=== PATIENT | female | born 1950 | race Hispanic/Latino ===

== ENCOUNTER → 2018-10-24 | Outpatient (CLI) | payer OTHER | END | disposition home or self-care (01) | LOC: SHCH 15:40 | PROVIDERS: ATTEND Internal Medicine Cardiovascular Disease | DX: I51.7 Cardiomegaly (principal) | CPT/HCPCS: 93306 ==

== ENCOUNTER → 2018-11-05 | Outpatient (CLI) | payer OTHER ==
[~2018-11-05] VITALS: Ht 152.4 cm; Wt 93.4 kg
[~2018-11-05] MED LIST: REGADENOSON 0.4 MG/5 ML PF SYG IVP SCH
== END | disposition home or self-care (01) ==
LOC: SHCH 07:32
PROVIDERS: ATTEND Internal Medicine Cardiovascular Disease
DX: R07.9 Chest pain, unspecified (principal)
CPT/HCPCS: 78452; 93017; 96374; A9500 ×2; J2785

== ENCOUNTER → 2024-05-02 | Outpatient (CLI) | payer OTHER ==
--- NOTE | 2024-05-02 16:20 | HMCIMG ---
CT HEART SAVER PROMOTIONAL HISTORY: Calcium scoring COMPARISON: None TECHNIQUE: Computed tomography of the heart was performed with ECG gating and suspended respiration. Postprocessing was performed on a computer workstation to obtain diastolic phase images, determine calcium score and provide a quantitative assessment of extent of disease. This CT included only the heart. HeartSaver score is 606.70. Please see cardiac calcium score report. The available CT chest images show no acute finding. CT was performed with one or more following dose reduction techniques: automated exposure control, adjustment of the mA and kv according to patient's size, or use of a iterative reconstruction technique.
== END | disposition home or self-care (01) ==
LOC: RAH 15:42
PROVIDERS: ATTEND Internal Medicine Cardiovascular Disease
DX: Z13.6 Encounter for screening for cardiovascular disorders (principal)
CPT/HCPCS: 75571

== ENCOUNTER 2025-02-09 06:34 | Day surgery (SDC) | payer OTHER ==
[2025-02-05 12:22] LABS: IMMATURE GRANULOCYTE ABSOLUTE 0.01 K/uL (0-1); NUCLEATED RED BLOOD CELLS 0.0 % (0.0-0.19); PLATELET COUNT (AUTO) 145 K/uL (130-400); RED BLOOD CELL COUNT(AUTO) 4.14 MIL/uL (4.00-5.50); RED CELL DISTRIBUTION WIDTH 14.1 % (11.0-15.5); WHITE BLOOD COUNT (AUTO) 6.2 K/uL (4.8-10.8)
[2025-02-05 12:34] LABS: INR 0.97 (0.85-1.15)
[2025-02-05 12:38] LABS: ASPARTATE AMINOTRANSFERASE 15.0 U/L (10-37); CREATININE 0.9 mg/dL (0.5-1.0); GLOMERULAR FILTR. RATE CALC 68.0 mL/min (>90); GLUCOSE,RANDOM 108.0 mg/dL (70-105); SODIUM SERUM 142.0 mmol/L (136-145); TOTAL PROTEIN, SERUM 7.5 g/dL (6.0-8.3); UREA NITROGEN, BLOOD 19.0 mg/dL (7-18)
[2025-02-05 12:41] VITALS: BP 135/64; PULSE 65; RESP 14; TEMP 97.3
--- NOTE | 2025-02-05 14:24 | EKG ---
[facility] Test Date: 2025-02-05 Test Time: 11:55:36 Pat Name: CHRISTINE HUTCHINSON Department: [facility] Patient ID: [facility] [id number] Room: Gender: F Sports Journalist: [id number] : 1950 Requested By: WINNIE THOMAS Order Number: [id number] Reading MD: Markel Fregoso Measurements Intervals [place] Rate: 64 P: 39 [place]: 152 QRS: -13 QRSD: 92 T: 7 QT: 401 QTc: 414 Interpretive Statements Sinus rhythm Low voltage, precordial leads No previous ECG available for comparison Electronically Signed On 02-06-2025 02:17:58 CDT by Markel Fregoso Please click the below link to view image of tracing.
[2025-02-09] VITALS (14 sets, daily range): BP systolic 98–137; BP diastolic 56–66; PULSE 58–78; RESP 15–19; TEMP 96.7–97.7
[~2025-02-09] VITALS: Ht 152.4 cm; Wt 91.3 kg
[~2025-02-09 06:34] MED LIST changes: +ASPI-1005 PO; -REGADENOSON 0.4 MG/5 ML PF SYG IVP SCH; +ROSU10TA72 PO
[2025-02-09] MEDS ORDERED: LIDOCAINE HCL 1% 20 ML VIAL ONE (06:59)
[2025-02-09] MEDS: 0.9%NACL 1000ML 1,000 ML IV ONE (07:09)
[2025-02-09] MEDS ORDERED: LIDOCAINE PF 100MG/5ML (2%) SYRINGE 5ML ONE (07:26)
[2025-02-09] MEDS ORDERED: MIDAZOLAM HCL 1 MG/ML 2ML VIAL ONE (07:27)
[2025-02-09] MEDS ORDERED: GLYCOPYRROLATE 0.2 MG/ML 5 ML VIAL ONE (07:31)
[2025-02-09] MEDS ORDERED: NEOSTIGMINE METHYLSULFATE 1MG/ML IV ONE (07:31)
--- NOTE | 2025-02-09 07:32 | NUR ---
REPORTED REPORTED TO DR. WINNIE THOMAS AND TIFFANIE MORALEZ CRNA REGARDING RIGHT SIDED FACIAL SPASMS AND WHAT PATIENT STATED. PATIENT STATED "I WAS SUPPOSED TO GET AN MRI DONE ON THE BUT DID NOT GET IT DONE DUE TO A BLOOD TEST THE NECROLOGIST CANNOT TREAT IT OR RULE OUT A STROKE UNTIL MRI IS DONE". PER DR. JUNG OKAY TO PROCEED.
[2025-02-09] MEDS: LIDOCAINE 1%-EPI 1:100,000 20 ML VIAL ONE (08:06)
--- NOTE | 2025-02-09 10:34 | OP ---
Operative Note: DATE OF PROCEDURE: 02/09/25 SURGEON: WINNIE THOMAS MD CAFE WORKER: [None] PREOPERATIVE DIAGNOSIS: [Grade 3 hemorrhoids.] POSTOPERATIVE DIAGNOSIS: [Same.] SYNOPSIS: [The patient with prolapsing hemorrhoids and anal pain.] PROCEDURE: [Excisional hemorrhoidectomy two columns internal and external. Suture ligation of internal hemorrhoid. Proctopexy. Procto plasty.] ESTIMATED BLOOD LOSS: [None] INDICATIONS: [This is 74-year-old female who presents with anal pain discomfort and prolapsing hemorrhoids. She tried conservative management without improvement. She presents for surgical treatment of the hemorrhoidal disease. Risks were abrasions and alternatives were explained in detail to the patient who granted consent.] DESCRIPTION OF PROCEDURE: [The patient was identified in the holding area transferred to the OR placed supine on the operative table. Venodyne boots were placed, time-out conducted, and after IV antibiotics were given she was placed in lithotomy position. Great care was taken to pad all pressure points. She was prepped and draped in the usual sterile fashion. Anal block was given with 0.25% Marcaine and 1% lidocaine with epinephrine. Careful examination revealed two prolapsing hemorrhoidal bundles the right posterior the left lateral bundles. This suture was placed at the apex and these were excised internal e xternal component and then the anal derm was oversewn. The right anterior bundle a prolapsing internal hemorrhoids with no external component. For this reason a suture was placed at the apex well above the perfusion bleeding internal hemorrhoid. Was run down all the way to the dentate line and then tied to itself in this way achieving a proctopexy proctopexy of the hemorrhoidal bundle. It was aspirated and irrigated for him and hemostasis noted to be excellent. Counts were done and correct. Sterile dressing was applied. There were no complications. I was present and scrubbed for the entire case.] WINNIE HIGGINS MD Feb 09, 2025 10:34
--- NOTE | 2025-02-09 14:21 | NUR ---
called pt daughter mumtaz [phone] advised rx was sent to wrong pharmacy from dr paulson office it has been re sent to correct pharmacy [facility] per amelia staff
== END 2025-02-09 10:10 | disposition home or self-care (01) ==
LOC: DAH 06:34
PROVIDERS: ATTEND Surgery
DX: K64.2 Third degree hemorrhoids (principal); K64.4 Residual hemorrhoidal skin tags; Z79.899 Other long term (current) drug therapy; Z79.01 Long term (current) use of anticoagulants; Z79.82 Long term (current) use of aspirin; E11.9 Type 2 diabetes mellitus without complications; K21.9 Gastro-esophageal reflux disease without esophagitis; E66.1 Drug-induced obesity; Z90.710 Acquired absence of both cervix and uterus; Z90.49 Acquired absence of other specified parts of digestive tract; Z98.890 Other specified postprocedural states
CPT/HCPCS: 80053; 85025; 85610; 85730; 36415; 93005; 46250; 46945; 82948 ×2; 88304; A6260; J1100; A4663; A4649 ×3; J3010; J3490 ×3; J7030; J0665; J2003; J2250; J2704; J2405; J2710; J2371; J0690; A4215; A4223; A4213; A4222; A4221; A4600

== ENCOUNTER → 2025-04-03 | Outpatient (CLI) | payer OTHER ==
[~2025-04-03] MED LIST changes: -ROSU10TA72 PO; +ROSU10TA98 PO
--- NOTE | 2025-04-04 07:19 | HMCIMG ---
EXAM: CR Lumbar Spine, 6 View. CLINICAL HISTORY: Pain COMPARISON: None provided. FINDINGS: BONES: No acute fracture or aggressive appearing osseous lesion. Osteophytic lipping of the L2-L3 vertebral articular margins. ALIGNMENT: Alignment is within normal limits. No significant scoliosis. No significant dynamic spinal instability on flexion and extension views. DISCS / DEGENERATIVE CHANGES: Moderate lumbar spondylotic changes with mild disc space narrowing and bilateral neural foraminal narrowing at L1-L2 and L2-L3. The other disc spaces are preserved. SOFT TISSUES: Vascular calcifications. IMPRESSION: 1. No acute osseous injury. 2. Moderate lumbar spondylosis with mild disc space narrowing and bilateral neural foraminal narrowing at L1-L2 and L2-L3. /[place]
== END | disposition home or self-care (01) ==
LOC: RAH 09:03
PROVIDERS: ATTEND Psychiatry & Neurology Neurology
DX: M47.816 Spondylosis without myelopathy or radiculopathy, lumbar region (principal); M48.061 Spinal stenosis, lumbar region without neurogenic claudication; M51.360 Other intervertebral disc degeneration, lumbar region with discogenic back pain only
CPT/HCPCS: 72110